=== PATIENT | female | born 2005 | race Caucasian/White ===

== ENCOUNTER 2025-08-07 11:23 | Outpatient (CLI) | payer MEDICAID, SELFPAY ==
--- NOTE | 2025-08-07 11:32 | MR_ITS ---
WS: [id number] MRI HEAD WITHOUT CONTRAST TECHNIQUE: Sagittal T1, T2 axial, T2 axial FLAIR, axial and coronal T1 images, axial susceptibility weighted imaging, axial diffusion weighted images, and coronal T2 images were obtained. CLINICAL INFORMATION: HEADACHE/BILATERAL EYE PAIN COMPARISON: None. FINDINGS: No evidence of restricted diffusion to suggest acute ischemia. Normal whalen-white differentiation. No suspicious intracranial signal abnormalities. Prominent adenoid tissue normal for a patient this age. Paranasal sinuses and mastoid air cells are well aerated. Normal posterior fossa. Normal vascular flow voids at the skull base. No extra-axial fluid collections. No hemosiderin on the susceptibly weighted images. Normal optic chiasm and pituitary infundibulum. Temporal lobes and hippocampal formations are normal in appearance. MR/MR head wo con* [id number] IMPRESSION: 1. No evidence of restricted diffusion to suggest acute ischemia. 2. No suspicious intracranial signal abnormalities. Normal whalen-white differen tiation. 3. No hemosiderin on susceptibility-weighted images. 4. No other acute findings.
== END 2025-08-07 11:24 | disposition home or self-care (01) ==
LOC: RAD 11:24
PROVIDERS: PCP Family Medicine; Visit Provider Family Medicine
DX: H57.13 Ocular pain, bilateral (principal); R51.9 Headache, unspecified
CPT/HCPCS: 70551